=== PATIENT | male | born 1975 | race Asian ===

== ENCOUNTER 2018-04-12 20:50 | Emergency (ER) | payer BC ==
[~2018-04-12] VITALS: Ht 170.2 cm; Wt 63.6 kg
[2018-04-12 20:54] VITALS: TEMP 98.7
[2018-04-12] MEDS ORDERED: EPIPEN 2-PAK1 MG/ML IM (22:01)
[2018-04-12 23:10] VITALS: BP 104/64; PULSE 64
== END 2018-04-12 23:00 | disposition home or self-care (01) ==
LOC: COL.ER 20:50
DX: T63.461A Toxic effect of venom of wasps, accidental (unintentional), initial encounter (principal); T78.2XXA Anaphylactic shock, unspecified, initial encounter
CPT/HCPCS: J1200; J2930; J7512